=== PATIENT | female | born 1970 ===

== ENCOUNTER 2017-08-14 15:26 | Emergency (ER) | payer SELFPAY ==
--- NOTE | 2017-08-14 16:18 | ED PDOC ---
HPI: Abdomen Time Seen by Provider: 08/14/17 16:18 Chief Complaint (Nursing): Abdominal Pain Chief Complaint (Provider): abd pain History Per: Patient Additional Complaint(s): 47-year-old female presents to emergency department with umbilical pain and vomiting starting yesterday. Patient states that 6 months ago she had a tummy tuck and has been doing well since time of surgery up until yesterday. As of yesterday she developed pain and vomiting with no fever or chills. Patient denies any diarrhea. She rates current pain as a 7 out of 10. PMD: [facility] Past Medical History Reviewed: Historical Data, Nursing Documentation, Vital Signs Vital Signs: Last Vital Signs Temp 98.4 F 08/14/17 15:56 Pulse 66 08/14/17 15:56 Resp 17 08/14/17 15:56 BP 125/76 08/14/17 15:56 Pulse Ox 100 08/14/17 19:19 - Medical History PMH: No Chronic Diseases - Surgical History Surgical History: (2) Other surgeries: tummy tuck - Family History Family History: States: No Known Family Hx - Living Arrangements Living Arrangements: With Family - Social History Current smoker - smoking cessation education provided: No Alcohol: None Drugs: Denies - Home Medications Home Medications: Ambulatory Orders Medication Instructions Recorded Famotidine [Pepcid] 20 mg PO BID PRN #10 tab 09/08/14 Clindamycin [Cleocin] 300 mg PO TID #21 cap 08/14/17 Ibuprofen [Motrin] 600 mg PO Q6 PRN #15 tab 08/14/17 - Allergies Allergies/Adverse Reactions: Allergies Allergy/AdvReac Type Severity Reaction Status Date / Time No Known Allergies Allergy Verified 08/14/17 15:56 Review of Systems ROS Statement: Except As Marked, All Systems Reviewed And Found Negative Constitutional: Negative for: Fever, Chills Cardiovascular: Negative for: Chest Pain Respiratory: Negative for: Cough Gastrointestinal: Positive for: Nausea, Vomiting, Abdominal Pain. Negative for : Diarrhea Physical Exam - Reviewed Nursing Documentation Reviewed: Yes Vital Signs Reviewed: Yes - Physical Exam Appears: Positive for: Well, Non-toxic, No Acute Distress Head Exam: Positive for: ATRAUMATIC, NORMAL INSPECTION, NORMOCEPHALIC Skin: Negative for: Rash Eye Exam: Positive for: Normal appearance Cardiovascular/Chest: Positive for: Regular Rate, Rhythm Respiratory: Positive for: Normal Breath Sounds Gastrointestinal/Abdominal: Positive for: Other (Localized erythema, tenderness and swelling noted to the umbilical region, positive mild guarding, no rebound, no distention, normoactive bowel sounds in all 4 quadrants) Back: Negative for: L CVA Tenderness, R CVA Tenderness Extremity: Positive for: Normal ROM Neurologic/Psych: Positive for: Alert, Oriented - Laboratory Results Result Diagrams: 08/14/17 17:19 08/14/17 17:19 Urine POC: Negative Urine dip results: Positive for: Blood (trace). Negative for: Leukocyte Esterase, Nitrate, Ketones, Glucose, Bilirubin, Protein - ECG O2 Sat by Pulse Oximetry: 100 Pulse Ox Interpretation: Normal - Other Rad CT abd and pelvis with IV contrast X-Ray: Read By Radiologist X-Ray Interpretation: see below Medical Decision Making Medical Decision Makin-year-old female with abdominal pain and vomiting Plan: CBC CMP Lipase Urine dip and test IVF IV toradol IV zofran CT abd and pelvis with oral and IV contrast CT: FINDINGS: LOWER THORAX: Unremarkable. LIVER: Hepatic steatosis. No focal masses. No intrahepatic bile duct dilatation or perihepatic ascites. GALLBLADDER AND BILE DUCTS: Unremarkable. PANCREAS: Unremarkable. No gross lesion or ductal dilatation. SPLEEN: Unremarkable. ADRENALS: Unremarkable. No mass. KIDNEYS AND URETERS: Unremarkable. No hydronephrosis. No solid mass. VASCULATURE: Unremarkable. No aortic aneurysm. BOWEL: Unremarkable. No obstruction. No gross mural thickening. APPENDIX: Normal appendix. PERITONEUM: Unremarkable. No free fluid. No free air. LYMPH NODES: Unremarkable. No enlarged lymph nodes. BLADDER: Unremarkable. REPRODUCTIVE: Unremarkable. Intrauterine contraceptive device (IUD) identified in what appears to be satisfactory position. BONES: No acute fracture. OTHER FINDINGS: Periumbilical, subcutaneous well-circumscribed fluid collection with a well-formed radium 2.5 x 2.9 cm. There is no evidence of incarcerated bowel. This represents a new finding compared to the prior CT. Postoperative changes midline at the level of the pelvis. Small reactive lymph nodes in both inguinal regions. IMPRESSION: Well-formed periumbilical subcutaneous collection 2.5 x 2.9 cm. No intra-abdominal or pelvic abnormalities of an acute nature. Additional benign and/or incidental findings described above. Patient states pain is better after Toradol was given. Patient's PMD is [facility], call was placed to surgery head concierge, Dr. Heard who states finding is likely a seroma and patient can be seen in clinic as outpatient. Patient was given prescriptions for clindamycin and Motrin. She was advised to contact clinic tomorrow to arrange for follow-up visit. Disposition - Clinical Impression Clinical Impression: Seroma after procedure - Patient ED Disposition Is Patient to be Admitted: No Counseled Patient/Family Regarding: Studies Performed, Diagnosis, Need For Followup, Rx Given - Disposition Referrals: [facility] [Outside] Disposition: Routine/Home Disposition Time: 19:28 Condition: STABLE Additional Instructions: Take prescription meds as directed. Apply warm compresses to affected area. Call clinic tomorrow to arrange for follow-up visit with surgeon. Prescriptions: Clindamycin [Cleocin] 300 mg PO TID #21 cap Ibuprofen [Motrin] 600 mg PO Q6 PRN #15 tab PRN Reason: Pain, Moderate (4-7) Instructions: Surgical Site Infections (ED) Forms: [employer] ([place]) Results - Lab Results Lab Results: 08/14/17 08/14/17 17:19 17:19 WBC 9.9 RBC 4.62 Hgb 12.8 Hct 39.0 MCV 84.6 MCH 27.8 MCHC 32.9 L RDW 13.6 Plt Count 238 MPV 9.1 Neut % (Auto) 61.7 Lymph % (Auto) 30.8 Dixon % (Auto) 4.9 Eos % (Auto) 1.4 Baso % (Auto) 1.2 Neut # (Auto) 6.1 Lymph # (Auto) 3.0 Dixon # (Auto) 0.5 Eos # (Auto) 0.1 Baso # (Auto) 0.1 Sodium 138 Potassium 4.3 Chloride 103 Carbon Dioxide 25 Anion Gap 14 BUN 13 Creatinine 0.6 L Est GFR ( Amer) > 60 Est GFR (Non-Af Amer) > 60 Random Glucose 92 Calcium 9.2 Total Bilirubin 0.6 AST 46 H ALT 16 Alkaline Phosphatase 89 Total Protein 7.7 Albumin 4.1 Globulin 3.6 Albumin/Globulin Ratio 1.1 Lipase 120
[2017-08-14] MEDS ORDERED: Sodium Chloride 0.9% 1,000 ML IV STA (16:38)
[2017-08-14 17:24] LABS: BASO # 0.1 K/uL (0.0-0.2); BASO % 1.2 % (0.0-2.0); EOS # 0.1 K/uL (0.0-0.7); EOS % 1.4 % (0.0-4.0); HEMOGLOBIN 12.8 g/dL (12.0-16.0); LYMPH % 30.8 % (20.0-40.0); MEAN CELL VOLUME 84.6 fl (81.0-99.0); MEAN CORPUSCULAR HEMOGLOBIN 27.8 pg (27.0-31.0); MEAN CORPUSCULAR HGB CONC 32.9 g/dL (33.0-37.0); MEAN PLATELET VOLUME 9.1 fl (7.2-11.7); MONO # 0.5 K/uL (0.0-0.8); MONO % 4.9 % (0.0-10.0); NEUT # 6.1 K/uL (1.8-7.0); NEUT % 61.7 % (50.0-75.0); NRBC % 0.1 % (0.0-0.0); RBC 4.62 Mil/uL (3.80-5.20); RED CELL DISTRIBUTION WIDTH 13.6 % (11.5-14.5); WHITE BLOOD COUNT 9.9 K/uL (4.8-10.8)
[2017-08-14 17:57] LABS: ALB/GLOB RATIO 1.1 (1.0-2.1); ALBUMIN 4.1 g/dL (3.5-5.0); CALCIUM 9.2 mg/dL (8.4-10.2); GFR AFRICAN-AMERICAN > 60; GFR NON-AFRICAN AMERICAN > 60; LIPASE 120 U/L (23-300)
[2017-08-14 17:58] LABS: ALT/SGPT 16 U/L (9-52); AST/SGOT 46 U/L (14-36); BLOOD UREA NITROGEN 13 mg/dl (7-17)
[2017-08-14] MEDS ORDERED: Sodium Chloride 0.9% 50 ML IV ONE (18:25)
[2017-08-14] MEDS ORDERED: Iohexol 300 100 ML IJ ONE (18:25)
--- NOTE | 2017-08-14 19:03 | CT ---
PROCEDURE: CT Abdomen and Pelvis with contrast HISTORY: umbilical pain, fever, vomiting approximately 24 hours duration. Relevant surgical history: "Tummy tuck" 6 months ago.. COMPARISON: 09/08/2014. TECHNIQUE: Contrast dose: 95 cc Omnipaque 300 Radiation dose: Total exam DLP = 1113.94 mGy-cm. This CT exam was performed using one or more of the following dose reduction techniques: Automated exposure control, adjustment of the mA and/or kV according to patient size, and/or use of iterative reconstruction technique. FINDINGS: LOWER THORAX: Unremarkable. LIVER: Hepatic steatosis. No focal masses. No intrahepatic bile duct dilatation or perihepatic ascites. GALLBLADDER AND BILE DUCTS: Unremarkable. PANCREAS: Unremarkable. No gross lesion or ductal dilatation. SPLEEN: Unremarkable. ADRENALS: Unremarkable. No mass. KIDNEYS AND URETERS: Unremarkable. No hydronephrosis. No solid mass. VASCULATURE: Unremarkable. No aortic aneurysm. BOWEL: Unremarkable. No obstruction. No gross mural thickening. APPENDIX: Normal appendix. PERITONEUM: Unremarkable. No free fluid. No free air. LYMPH NODES: Unremarkable. No enlarged lymph nodes. BLADDER: Unremarkable. REPRODUCTIVE: Unremarkable. Intrauterine contraceptive device (IUD) identified in what appears to be satisfactory position. BONES: No acute fracture. OTHER FINDINGS: Periumbilical, subcutaneous well-circumscribed fluid collection with a well-formed radium 2.5 x 2.9 cm. There is no evidence of incarcerated bowel. This represents a new finding compared to the prior CT. Postoperative changes midline at the level of the pelvis. Small reactive lymph nodes in both inguinal regions. IMPRESSION: Well-formed periumbilical subcutaneous collection 2.5 x 2.9 cm. No intra-abdominal or pelvic abnormalities of an acute nature. Additional benign and/or incidental findings described above.
[2017-08-14 19:51] VITALS: BP 125/78; PULSE 73; RESP 16; TEMP 98.2; O2SAT 99
== END 2017-08-14 19:41 | disposition home or self-care (01) ==
LOC: H.ER 15:26
DX: L76.34 Postprocedural seroma of skin and subcutaneous tissue following other procedure (principal)
CPT/HCPCS: 74177; 80053; 81025; 83690; 85025; 99285; J1885; J2405; J7040; Q9967

== ENCOUNTER 2017-08-15 09:45 | Emergency (ER) | payer SELFPAY ==
[2017-08-15 10:11] VITALS: BP 111/68; PULSE 75; RESP 18; TEMP 98.6; O2SAT 100
--- NOTE | 2017-08-15 10:49 | ED PDOC ---
HPI: General Adult Time Seen by Provider: 08/15/17 10:49 Chief Complaint (Nursing): Abdominal Pain Chief Complaint (Provider): navel infection History Per: Patient Additional Complaint(s): 47-year-old female presents to emergency Department for wound check of infection to umbilicus. Patient was seen yesterday and diagnosed with seroma to umbilical region. She has tummy tuck 6 months ago with reconstruction of umbilicus. Patient was sent home with antibiotics and returns today stating that she is having active drainage. She denies fever or chills and states her abdomen feels better today than it did yesterday. Patient has an appointment today with the surgeon in [facility] who completed her tummy tuck surgery 6 months ago. Past Medical History Reviewed: Historical Data, Nursing Documentation, Vital Signs Vital Signs: Last Vital Signs Temp 98.6 F 08/15/17 10:08 Pulse 75 08/15/17 10:08 Resp 18 08/15/17 10:08 BP 111/68 08/15/17 10:08 Pulse Ox 100 08/15/17 10:49 - Medical History PMH: No Chronic Diseases - Surgical History Surgical History: (2) Other surgeries: tummy tuck - Family History Family History: States: No Known Family Hx - Living Arrangements Living Arrangements: With Family - Social History Current smoker - smoking cessation education provided: No Alcohol: None Drugs: Denies - Home Medications Home Medications: Ambulatory Orders Medication Instructions Recorded Famotidine [Pepcid] 20 mg PO BID PRN #10 tab 09/08/14 Clindamycin [Cleocin] 300 mg PO TID #21 cap 08/14/17 Ibuprofen [Motrin] 600 mg PO Q6 PRN #15 tab 08/14/17 - Allergies Allergies/Adverse Reactions: Allergies Allergy/AdvReac Type Severity Reaction Status Date / Time No Known Allergies Allergy Verified 08/15/17 10:06 Review of Systems ROS Statement: Except As Marked, All Systems Reviewed And Found Negative Constitutional: Negative for: Fever, Chills Skin: Positive for: Other (infection to umbilicus) Physical Exam - Reviewed Nursing Documentation Reviewed: Yes Vital Signs Reviewed: Yes - Physical Exam Appears: Positive for: Well, Non-toxic, No Acute Distress Skin: Negative for: Rash Eye Exam: Positive for: Normal appearance Cardiovascular/Chest: Positive for: Regular Rate, Rhythm Respiratory: Positive for: Normal Breath Sounds Gastrointestinal/Abdominal: Positive for: Other (Serosanguineous drainage noted from umbilicus, localized surrounding erythema with no erythematous streaking, abdomen is soft, nontender, no distention, no rebound or guarding) Back: Negative for: L CVA Tenderness, R CVA Tenderness Extremity: Positive for: Normal ROM Neurologic/Psych: Positive for: Alert, Oriented - ECG O2 Sat by Pulse Oximetry: 100 Pulse Ox Interpretation: Normal Medical Decision Making Medical Decision Makin-year-old with infection to umbilicus Patient was seen yesterday and started on clindamycin. She has an appointment today with her surgeon. She was given copy of her CT report from yesterday and was instructed to follow up as scheduled today with surgeon. Disposition - Clinical Impression Clinical Impression: Seroma after procedure - Patient ED Disposition Is Patient to be Admitted: No Counseled Patient/Family Regarding: Diagnosis, Need For Followup, Rx Given - Disposition Referrals: [facility] [Outside] Disposition: Routine/Home Disposition Time: 11:25 Condition: STABLE Additional Instructions: Keep area clean and dry. Follow-up as scheduled today with your surgeon. Instructions: Surgical Site Infections (ED) Forms: [employer] ([place]ian)
== END 2017-08-15 13:44 | disposition home or self-care (01) ==
LOC: H.ER 09:45
DX: L76.34 Postprocedural seroma of skin and subcutaneous tissue following other procedure (principal)